=== PATIENT | male | born 1945 | race Caucasian/White ===

== ENCOUNTER 2016-12-13 15:55 | Inpatient (IN) | payer OTHER ==
[~2016-12-13] VITALS: Ht 177.8 cm; Wt 127.0 kg
[~2016-12-13 15:55] MED LIST: ASPIR-LOW81 MG PO; ATORVASTATIN CA40 MG PO; COLACE100 MG PO; FUROSEMIDE20 MG PO; LOSARTAN POTASS25 MG PO; METOPROLOL TAR100 MG PO; NAMENDA10 MG PO; PROTONIX20 MG PO; QVAR 80 MCG IN7.3 GM IH; TAMSULOSIN HCL0.4 MG PO; TRAMADOL HCL50 MG PO; TRAZODONE HCL50 MG PO; TYLENOL EXTRA500 MG PO; TYLENOL PM1 CAPLET PO; VENLAFAXINE HC100 MG PO
[2016-12-13 16:26] LABS: MCH 30.3 PG (29.0-34.0); MCHC 32.2 G/DL (30.0-36.0); MCV 94.3 FL (86-99); MEAN PLAT.VOLUME 9.5 uM^3 (9.0-12.4); PLATELET COUNT 189 K/uL (156-360); RBC DIS.WIDTH-CV 14.3 % (11.8-14.6); RED BLOOD COUNT 4.35 M/uL (4.00-5.50)
[2016-12-13 16:43] LABS: CHLORIDE 102 mEq/L (99-109); POTASSIUM 4.3 mEq/L (3.7-5.4); SODIUM 138 mEq/L (136-147)
[2016-12-13 16:44] LABS: GLUCOSE 101 mg/dL (70-99)
[2016-12-13 16:46] LABS: ANION GAP 14 MEQ/L (2-14)
[2016-12-13 16:47] LABS: TROP-I INTERPRETATION NEGATIVE; TROPONIN-I < 0.01 ng/mL (0.0-0.30)
[2016-12-13 16:48] LABS: GFR ESTIMATE (CALCULATED) > 59 mL/min/
[2016-12-13 16:49] LABS: UREA NITROGEN (BUN) 19 mg/dL (9-23)
[2016-12-13 17:11] LABS: MAGNESIUM 2.2 mg/dL (1.3-2.7)
[2016-12-13 17:21] LABS: INTER. NORMALIZED RATIO 1.4; PROTHROMBIN TIME 14.6 (9.2-11.2); PTT 34.5 (25-32)
[2016-12-13] MEDS ORDERED: COREG25 M1 PO (18:03)
[2016-12-13] MEDS ORDERED: XARELTO20 MG PO (18:03)
[2016-12-13] MEDS ORDERED: BENADRYL50 MG PO (18:04)
[2016-12-13] MEDS ORDERED: LASIX40 MG PO (18:05)
[2016-12-13 22:59] LABS: TROP-I INTERPRETATION NEGATIVE; TROPONIN-I < 0.01 ng/mL (0.0-0.30)
[2016-12-14 01:06] VITALS: BP 139/77
[2016-12-14 04:22] VITALS: BP 131/73
[2016-12-14 04:22] LABS: EOSINOPHIL (%) 2.7 % (0-5); EOSINOPHIL COUNT 0.2 K/uL (0-0.3); IMMATURE GRANULOCYTE (%) 0.2 % (0.0-0.7); IMMATURE GRANULOCYTE COUNT 0.1 K/uL; LYMPHOCYTE COUNT 1.2 K/uL (1.0-2.8); MCH 30.5 PG (29.0-34.0); MCHC 32.1 G/DL (30.0-36.0); MEAN PLAT.VOLUME 9.3 uM^3 (9.0-12.4); MONOCYTE (%) 14.8 % (3-12); MONOCYTE COUNT 0.9 K/uL (0-0.8); NEUTROPHIL (%) 62.2 % (45-76); NEUTROPHIL COUNT 3.7 K/uL (1.8-6.4); PLATELET COUNT 165 K/uL (156-360); RBC DIS.WIDTH-CV 14.3 % (11.8-14.6)
[2016-12-14 04:32] LABS: CHLORIDE 106 mEq/L (99-109); POTASSIUM 3.8 mEq/L (3.7-5.4); SODIUM 140 mEq/L (136-147)
[2016-12-14 04:34] LABS: GLUCOSE 90 mg/dL (70-99)
[2016-12-14 04:36] LABS: ANION GAP 9 MEQ/L (2-14)
[2016-12-14 04:38] LABS: GFR ESTIMATE (CALCULATED) > 59 mL/min/
[2016-12-14 04:39] LABS: UREA NITROGEN (BUN) 19 mg/dL (9-23)
[2016-12-14 04:47] LABS: TROP-I INTERPRETATION NEGATIVE; TROPONIN-I < 0.01 ng/mL (0.0-0.30)
[2016-12-14 07:17] LABS: INTERNAL CONTROL VALID? YES
[2016-12-14 08:55] VITALS: BP 130/75
[2016-12-14 12:45] VITALS: BP 131/75
[2016-12-14 16:45] VITALS: BP 135/75
[2016-12-14 20:00] VITALS: BP 135/91
[2016-12-15] VITALS: BP 115/67
[2016-12-15 04:00] VITALS: BP 147/80
[2016-12-15 07:32] LABS: ANION GAP 7 MEQ/L (2-14); CHLORIDE 104 MEQ/L (99-109); GFR ESTIMATE (CALCULATED) > 59 mL/min/; GLUCOSE 91 mg/dL (70-99); POTASSIUM 3.7 MEQ/L (3.7-5.4); SAMPLE HEMOLYSIS CHECK 0; SAMPLE ICTERIC CHECK 0; SAMPLE LIPEMIA CHECK 0; SODIUM 141 MEQ/L (136-147); UREA NITROGEN (BUN) 14 mg/dL (9-23)
[2016-12-15 09:14] VITALS: BP 118/76
[2016-12-15 11:58] VITALS: BP 142/78
[2016-12-15 20:58] VITALS: BP 131/82
[2016-12-15 23:40] VITALS: BP 144/84
[2016-12-16] VITALS (7 sets, daily range): BP systolic 101–135; BP diastolic 55–89
[2016-12-16 06:39] LABS: ANION GAP 6 MEQ/L (2-14); CHLORIDE 101 MEQ/L (99-109); GFR ESTIMATE (CALCULATED) > 59 mL/min/; GLUCOSE 85 mg/dL (70-99); POTASSIUM 3.7 MEQ/L (3.7-5.4); SAMPLE HEMOLYSIS CHECK 0; SAMPLE ICTERIC CHECK 0; SAMPLE LIPEMIA CHECK 0; SODIUM 139 MEQ/L (136-147); UREA NITROGEN (BUN) 15 mg/dL (9-23)
[2016-12-17 04:45] VITALS: BP 113/75
[2016-12-17 06:20] LABS: ANION GAP 7 MEQ/L (2-14); CHLORIDE 101 MEQ/L (99-109); GFR ESTIMATE (CALCULATED) > 59 mL/min/; GLUCOSE 99 mg/dL (70-99); POTASSIUM 3.9 MEQ/L (3.7-5.4); SAMPLE HEMOLYSIS CHECK 0; SAMPLE ICTERIC CHECK 0; SAMPLE LIPEMIA CHECK 0; SODIUM 140 MEQ/L (136-147); UREA NITROGEN (BUN) 18 mg/dL (9-23)
[2016-12-17 07:20] VITALS: BP 140/70
[2016-12-17] MEDS ORDERED: DIGOXIN125 MCG PO (09:45)
[2016-12-17] MEDS ORDERED: FUROSEMIDE40 MG PO (09:48)
[2016-12-17] MEDS ORDERED: VENTOLIN HFA18 GM IH (11:03)
== END 2016-12-17 14:44 | disposition home or self-care (01) | DRG 292 ==
LOC: EME 15:55 → EDOF 20:57 → 5WEST 20:57 → 5SOUTH 12-16 16:28
PROVIDERS: Internal Medicine; Internal Medicine Cardiovascular Disease
DX: I50.23 Acute on chronic systolic (congestive) heart failure (principal); Z68.41 Body mass index [BMI] 40.0-44.9, adult; J90 Pleural effusion, not elsewhere classified; J98.11 Atelectasis; F33.9 Major depressive disorder, recurrent, unspecified; I69.351 Hemiplegia and hemiparesis following cerebral infarction affecting right dominant side; I48.2 Chronic atrial fibrillation; I25.5 Ischemic cardiomyopathy; I25.10 Atherosclerotic heart disease of native coronary artery without angina pectoris; Z60.2 Problems related to living alone; Z95.5 Presence of coronary angioplasty implant and graft; K21.9 Gastro-esophageal reflux disease without esophagitis; E66.01 Morbid (severe) obesity due to excess calories; E78.00 Pure hypercholesterolemia, unspecified; I27.2 Other secondary pulmonary hypertension; F03.90 Unspecified dementia, unspecified severity, without behavioral disturbance, psychotic disturbance, mood disturbance, and anxiety; J44.9 Chronic obstructive pulmonary disease, unspecified; Z96.653 Presence of artificial knee joint, bilateral; I65.21 Occlusion and stenosis of right carotid artery; Z87.891 Personal history of nicotine dependence; Z82.49 Family history of ischemic heart disease and other diseases of the circulatory system; Z80.8 Family history of malignant neoplasm of other organs or systems; Z79.82 Long term (current) use of aspirin
CPT/HCPCS: 71010; 71020; 71275; 80048; 83605; 83735; 83880; 84100; 84484; 85025; 85027; 85610; 85730; 87040; 87070; 87205; 87449; 93005; 94640; 94640 76; 94760; 94799; 97530 GP; 99202; 99281; 99285; G0378; G8978 GP CI; G8979 GP CH; G8987 GO CI; G8988 GO CH; J1940; J1956; J7030

== ENCOUNTER 2017-04-07 21:14 | Inpatient (IN) | payer OTHER ==
[~2017-04-07] VITALS: Ht 177.8 cm; Wt 115.5 kg
[~2017-04-07 21:14] MED LIST changes: +BENADRYL50 MG PO; +COREG25 M1 PO; +DIGOXIN125 MCG PO; +FUROSEMIDE40 MG PO; +LASIX40 MG PO; +VENTOLIN HFA18 GM IH; +XARELTO20 MG PO
[2017-04-07 22:55] LABS: CHLORIDE 99 mEq/L (99-109); POTASSIUM 4.4 mEq/L (3.7-5.4); SODIUM 137 mEq/L (136-147)
[2017-04-07 22:57] LABS: GLUCOSE 107 mg/dL (70-99); HEMATOCRIT 41.9 % (38.0-50.0); MCH 31.6 PG (29.0-34.0); MCHC 32.5 G/DL (30.0-36.0); MCV 97.2 FL (86-99); MEAN PLAT.VOLUME 9.5 uM^3 (9.0-12.4); PLATELET COUNT 212 K/uL (156-360); RBC DIS.WIDTH-CV 13.9 % (11.8-14.6); RBC DIS.WIDTH-SD 50.7 % (39-53); RED BLOOD COUNT 4.31 M/uL (4.00-5.50); WHITE BLOOD COUNT 10.8 K/uL (4.1-10.2)
[2017-04-07 22:59] LABS: ANION GAP 12 MEQ/L (2-14); INTER. NORMALIZED RATIO 1.2; PROTHROMBIN TIME 12.5 (9.2-11.2); PTT 32.7 (25-32)
[2017-04-07 23:01] LABS: GFR ESTIMATE (CALCULATED) > 59 mL/min/
[2017-04-07 23:02] LABS: UREA NITROGEN (BUN) 25 mg/dL (9-23)
[2017-04-07 23:22] LABS: TROP-I INTERPRETATION NEGATIVE; TROPONIN-I < 0.01 ng/mL (0.0-0.30)
[2017-04-08] MEDS ORDERED: TRAZODONE HCL50 MG PO (00:16)
[2017-04-08] MEDS ORDERED: ATORVASTATIN CA40 MG PO (00:17)
[2017-04-08] MEDS ORDERED: PANTOPRAZOLE SO20 MG PO (00:17)
[2017-04-08] MEDS ORDERED: COZAAR25 MG PO (00:18)
[2017-04-08] MEDS ORDERED: COREG25 M1 PO (00:18)
[2017-04-08] MEDS ORDERED: NAMENDA10 MG PO (00:18)
[2017-04-08] MEDS ORDERED: COL-RITE100 M1 PO (00:18)
[2017-04-08] MEDS ORDERED: LO-DOSE ASPIRIN81 M1 PO (00:19)
[2017-04-08] MEDS ORDERED: VENLAFAXINE HC100 MG PO (00:19)
[2017-04-08] MEDS ORDERED: TAMSULOSIN HCL0.4 MG PO (00:19)
[2017-04-08] MEDS ORDERED: QVAR 80 MCG IN7.3 GM IH (00:19)
[2017-04-08] MEDS ORDERED: XARELTO20 MG PO (00:20)
[2017-04-08] MEDS ORDERED: LASIX40 MG PO (00:20)
[2017-04-08] MEDS ORDERED: EXTRA STRENGTH500 M1 PO (00:20)
[2017-04-08] MEDS ORDERED: SPIRONOLACTONE25 MG PO (00:21)
[2017-04-08] MEDS ORDERED: DIGITEK250 MC2 PO (00:21)
[2017-04-08] MEDS ORDERED: BENADRYL50 MG PO (00:21)
[2017-04-08 02:03] VITALS: BP 170/80
[2017-04-08 02:25] LABS: HDL CHOLESTEROL 36 MG/DL (Desirable>=40); LDL CHOLESTEROL 53 mg/dL (Desirable<100); NON-HDL CHOLESTEROL 100 mg/dL (Desirable<160); TOTAL CHOLESTEROL 136 mg/dL (Desirable<200); TRIGLYCERIDES 234 MG/DL (Normal: <150)
[2017-04-08 06:37] LABS: HEMATOCRIT 40.2 % (38.0-50.0); MCH 31.3 PG (29.0-34.0); MCHC 32.6 G/DL (30.0-36.0); MCV 96.2 FL (86-99); MEAN PLAT.VOLUME 8.8 uM^3 (9.0-12.4); PLATELET COUNT 179 K/uL (156-360); RBC DIS.WIDTH-CV 13.8 % (11.8-14.6); RBC DIS.WIDTH-SD 49.2 % (39-53); RED BLOOD COUNT 4.18 M/uL (4.00-5.50); WHITE BLOOD COUNT 9.4 K/uL (4.1-10.2)
[2017-04-08 06:57] LABS: ALKALINE PHOSPHATASE 85 IU/L (3-129); ANION GAP 7 MEQ/L (2-14); CHLORIDE 101 MEQ/L (99-109); GFR ESTIMATE (CALCULATED) > 59 mL/min/; GLUCOSE 107 mg/dL (70-99); POTASSIUM 3.9 MEQ/L (3.7-5.4); SAMPLE HEMOLYSIS CHECK 0; SAMPLE ICTERIC CHECK 0; SAMPLE LIPEMIA CHECK 0; SODIUM 137 MEQ/L (136-147); TOTAL BILIRUBIN 0.7 MG/DL (0.0-1.0); UREA NITROGEN (BUN) 19 mg/dL (9-23)
[2017-04-08 07:58] VITALS: BP 93/44
[2017-04-08 11:30] VITALS: BP 138/69
[2017-04-08 16:01] VITALS: BP 132/69
[2017-04-08 20:11] VITALS: BP 146/71
[2017-04-08 23:55] VITALS: BP 117/63
[2017-04-09 04:20] VITALS: BP 120/62
[2017-04-09 07:39] LABS: Estimated Average Glucose 140 mg/dL (70-123); HEMOGLOBIN A1c (GLYCOHEMOGLOB) 6.5 % HGB (Below 5.7)
[2017-04-09 08:04] LABS: CHLORIDE 105 mEq/L (99-109); POTASSIUM 4.4 mEq/L (3.7-5.4); SODIUM 139 mEq/L (136-147)
[2017-04-09 08:06] LABS: GLUCOSE 97 mg/dL (70-99)
[2017-04-09 08:07] LABS: ANION GAP 8 MEQ/L (2-14)
[2017-04-09 08:10] LABS: GFR ESTIMATE (CALCULATED) > 59 mL/min/
[2017-04-09 08:11] LABS: UREA NITROGEN (BUN) 16 mg/dL (9-23)
[2017-04-09 08:25] VITALS: BP 105/71
[2017-04-09 12:52] VITALS: BP 140/88
[2017-04-09 16:07] VITALS: BP 130/66
[2017-04-09 19:59] VITALS: BP 139/71
[2017-04-10 00:04] VITALS: BP 129/63
[2017-04-10 04:12] VITALS: BP 153/88
[2017-04-10 08:26] VITALS: BP 130/71
[2017-04-10 12:03] VITALS: BP 139/69
[2017-04-10 16:40] VITALS: BP 139/71
[2017-04-10 20:00] VITALS: BP 134/65
[2017-04-11] VITALS (7 sets, daily range): BP systolic 114–152; BP diastolic 54–98
[2017-04-11 08:38] LABS: BASOPHIL COUNT 0.1 K/uL (0-0.1); EOSINOPHIL (%) 1.6 % (0-5); EOSINOPHIL COUNT 0.2 K/uL (0-0.3); HEMATOCRIT 42.9 % (38.0-50.0); IMMATURE GRANULOCYTE (%) 1.1 % (0.0-0.7); IMMATURE GRANULOCYTE COUNT 0.1 K/uL; LYMPHOCYTE COUNT 1.5 K/uL (1.0-2.8); MCH 30.8 PG (29.0-34.0); MCHC 31.5 G/DL (30.0-36.0); MCV 97.7 FL (86-99); MEAN PLAT.VOLUME 9.3 uM^3 (9.0-12.4); MONOCYTE (%) 7.8 % (3-12); MONOCYTE COUNT 0.7 K/uL (0-0.8); NEUTROPHIL (%) 73.5 % (45-76); PLATELET COUNT 203 K/uL (156-360); RBC DIS.WIDTH-CV 13.8 % (11.8-14.6); RBC DIS.WIDTH-SD 50.2 % (39-53); RED BLOOD COUNT 4.39 M/uL (4.00-5.50); WHITE BLOOD COUNT 9.5 K/uL (4.1-10.2)
[2017-04-11 09:11] LABS: ANION GAP 7 MEQ/L (2-14); CHLORIDE 101 MEQ/L (99-109); GFR ESTIMATE (CALCULATED) > 59 mL/min/; GLUCOSE 103 mg/dL (70-99); POTASSIUM 4.3 MEQ/L (3.7-5.4); SAMPLE HEMOLYSIS CHECK 0; SAMPLE ICTERIC CHECK 0; SAMPLE LIPEMIA CHECK 0; SODIUM 139 MEQ/L (136-147); UREA NITROGEN (BUN) 14 mg/dL (9-23)
[2017-04-12 03:27] VITALS: BP 131/67
[2017-04-12 07:46] VITALS: BP 119/69
[2017-04-12 07:52] LABS: BASOPHIL COUNT 0.1 K/uL (0-0.1); EOSINOPHIL (%) 1.6 % (0-5); EOSINOPHIL COUNT 0.2 K/uL (0-0.3); IMMATURE GRANULOCYTE (%) 1.1 % (0.0-0.7); IMMATURE GRANULOCYTE COUNT 0.1 K/uL; INSTRUMENT ABS NEUTROPHIL CT 7.7 K/uL; LYMPHOCYTE COUNT 1.3 K/uL (1.0-2.8); MCH 31.6 PG (29.0-34.0); MCHC 32.5 G/DL (30.0-36.0); MCV 97.1 FL (86-99); MEAN PLAT.VOLUME 9.5 uM^3 (9.0-12.4); MONOCYTE COUNT 0.8 K/uL (0-0.8); NEUTROPHIL (%) 75.8 % (45-76); NEUTROPHIL COUNT 7.7 K/uL (1.8-6.4); PLATELET COUNT 197 K/uL (156-360); RBC DIS.WIDTH-CV 13.8 % (11.8-14.6); RBC DIS.WIDTH-SD 49.4 % (39-53); RED BLOOD COUNT 4.12 M/uL (4.00-5.50); WHITE BLOOD COUNT 10.1 K/uL (4.1-10.2)
[2017-04-12 08:23] LABS: ANION GAP 6 MEQ/L (2-14); CHLORIDE 103 MEQ/L (99-109); GFR ESTIMATE (CALCULATED) > 59 mL/min/; GLUCOSE 108 mg/dL (70-99); POTASSIUM 4.2 MEQ/L (3.7-5.4); SAMPLE HEMOLYSIS CHECK 0; SAMPLE ICTERIC CHECK 0; SAMPLE LIPEMIA CHECK 0; SODIUM 139 MEQ/L (136-147); UREA NITROGEN (BUN) 14 mg/dL (9-23)
[2017-04-12 11:08] VITALS: BP 118/76
[2017-04-12] MEDS ORDERED: LOSARTAN POTASS25 MG PO (12:41)
[2017-04-12] MEDS ORDERED: BENADRYL50 MG PO (12:41)
[2017-04-12] MEDS ORDERED: CARVEDILOL6.25 MG PO (12:41)
[2017-04-12] MEDS ORDERED: FUROSEMIDE40 MG PO (12:42)
== END 2017-04-12 14:40 | disposition home or self-care (01) | DRG 69 ==
LOC: EME 21:14 → EDOF 04-08 00:27 → 5SOUTH 04-08 00:27
PROVIDERS: Emergency Medicine; Hospitalist; Internal Medicine
DX: G45.9 Transient cerebral ischemic attack, unspecified (principal); I95.89 Other hypotension; I48.2 Chronic atrial fibrillation; Z79.01 Long term (current) use of anticoagulants; I25.10 Atherosclerotic heart disease of native coronary artery without angina pectoris; N40.0 Benign prostatic hyperplasia without lower urinary tract symptoms; E66.9 Obesity, unspecified; Z68.36 Body mass index [BMI] 36.0-36.9, adult; I50.22 Chronic systolic (congestive) heart failure; F32.9 Major depressive disorder, single episode, unspecified; I25.5 Ischemic cardiomyopathy; E78.00 Pure hypercholesterolemia, unspecified; F03.90 Unspecified dementia, unspecified severity, without behavioral disturbance, psychotic disturbance, mood disturbance, and anxiety; K21.9 Gastro-esophageal reflux disease without esophagitis; Z66 Do not resuscitate; I69.351 Hemiplegia and hemiparesis following cerebral infarction affecting right dominant side; I11.0 Hypertensive heart disease with heart failure; Z96.652 Presence of left artificial knee joint; Z87.891 Personal history of nicotine dependence; Z95.1 Presence of aortocoronary bypass graft; H25.89 Other age-related cataract; E86.0 Dehydration
CPT/HCPCS: 70450; 70496; 70498; 71020; 80048; 80053; 80061; 83036; 84484; 85025; 85027; 85610; 85730; 92507 GN; 92610 GN; 93005; 93880; 94640; 94640 76; 97530 GP; 99281; 99285; J7030

== ENCOUNTER 2017-04-23 12:32 | Day surgery (SDC) | payer OTHER ==
[~2017-04-23] VITALS: Ht 177.8 cm; Wt 118.3 kg
[2017-04-23 08:45] VITALS: BP 138/67
[~2017-04-23 12:32] MED LIST changes: +CARVEDILOL6.25 MG PO; +COL-RITE100 M1 PO; +COZAAR25 MG PO; +DIGITEK250 MC2 PO; +EXTRA STRENGTH500 M1 PO; +LO-DOSE ASPIRIN81 M1 PO; +PANTOPRAZOLE SO20 MG PO; +SPIRONOLACTONE25 MG PO
[2017-04-23 17:17] VITALS: BP 114/71
[2017-04-23 20:45] VITALS: BP 138/67
[2017-04-23 23:40] VITALS: BP 139/85
[2017-04-24 04:09] VITALS: BP 113/59
[2017-04-24 08:30] VITALS: BP 140/87
[2017-04-24 11:29] VITALS: BP 124/82
== END 2017-04-24 16:00 | disposition home or self-care (01) ==
LOC: CATH 12:32 → 2SOUTH 14:20 → 4EAST 14:20 → 2SOUTH 14:20 → 4EAST 16:23
DX: I25.5 Ischemic cardiomyopathy (principal); I11.0 Hypertensive heart disease with heart failure; I50.9 Heart failure, unspecified; I48.91 Unspecified atrial fibrillation; E78.5 Hyperlipidemia, unspecified; K21.9 Gastro-esophageal reflux disease without esophagitis; Z95.1 Presence of aortocoronary bypass graft; Z86.73 Personal history of transient ischemic attack (TIA), and cerebral infarction without residual deficits; Z79.82 Long term (current) use of aspirin
CPT/HCPCS: 71010; 93005; 94640; 94640 76; C1894; C1899; G0378; J2250; J3010; S0020